=== PATIENT | female | born 1965 | race Caucasian/White ===

== ENCOUNTER 2022-12-19 06:10 | Day surgery (SDC) | payer OTHER ==
[~2022-12-19] VITALS: Ht 165.1 cm; Wt 107.0 kg
== END 2022-12-19 15:00 | disposition home or self-care (01) ==
LOC: CIR.AMB 06:10
PROVIDERS: ATTEND Surgery
DX: C50.312 Malignant neoplasm of lower-inner quadrant of left female breast (principal); R59.0 Localized enlarged lymph nodes; E04.1 Nontoxic single thyroid nodule; I10 Essential (primary) hypertension; Z20.822 Contact with and (suspected) exposure to COVID-19
CPT/HCPCS: 19301; 38525; 38792; 19285; L8699; A9541